=== PATIENT | female | born 1995 | race Hispanic/Latino ===

== ENCOUNTER 2019-03-03 12:48 | Observation (INO) | payer MEDICAID ==
[~2019-03-03] VITALS: Ht 165.1 cm; Wt 74.8 kg
[~2019-03-03 12:48] MED LIST: LEVO500T2 PO
[2019-03-03 14:05] LABS: BASOPHILS % (AUTO) 0.4 % (0.0-5.0); EOSINOPHILS % (AUTO) 0.6 % (0.0-8.0); HEMATOCRIT 32.9 % (36-48); LYMPHOCYTES % (AUTO) 20.2 % (21.0-51.0); MEAN CORPUSCULAR HEMOGLOBIN 29.3 pg (27.0-33.0); MEAN CORPUSCULAR HGB CONC 33.1 g/dL (32.0-36.0); MEAN CORPUSCULAR VOLUME 88.3 fL (79-99); NEUTROPHILS % (AUTO) 68.8 % (40.0-77.0); PLATELET COUNT (AUTO) 276 K/uL (130-400); RED BLOOD CELL COUNT(AUTO) 3.73 MIL/uL (4.00-5.50); RED CELL DISTRIBUTION WIDTH 14.8 % (11.0-15.5); WHITE BLOOD COUNT (AUTO) 11.5 K/uL (4.8-10.8)
[2019-03-03 14:12] LABS: APPEARANCE,URINE Clear (CLEAR); BILIRUBIN,URINE Negative (NEGATIVE); COLOR,URINE Yellow (YELLOW); GLUCOSE, URINE (UA) Negative (NEGATIVE); KETONES,URINE Negative (NEGATIVE); LEUKOCYTE ESTERASE ,URINE Small (NEGATIVE); NITRATE,URINE Negative (NEGATIVE); OCCULT BLOOD,URINE Negative (NEGATIVE); PROTEIN,URINE Negative (NEGATIVE); UROBILINOGEN,URINE 0.2 mg/dL (0.2-1.0)
[2019-03-03 14:18] LABS: CREATININE 0.6 mg/dL (0.5-1.5); POTASSIUM 3.6 mmol/L (3.5-5.1)
[2019-03-03 14:21] LABS: INR 0.88 (0.85-1.15); PARTIAL THROMBOPLASTIN TIME 24.8 SEC (26.3-35.5); PROTHROMBIN TIME 9.3 SEC (9.6-11.6)
[2019-03-03 14:24] LABS: ALBUMIN 2.4 g/dL (3.5-5.0); BILIRUBIN,TOTAL 0.2 mg/dL (0.2-1.0); TOTAL PROTEIN, SERUM 6.6 g/dL (6.0-8.3); URIC ACID 5.4 mg/dL (2.6-7.2)
[2019-03-03 14:36] LABS: RBC,URINE 0-1 /HPF (0-1)
[2019-03-03 14:37] LABS: BACTERIA,URINE Rare /HPF (None Seen); SQUAMOUS EPITHELIAL CELL,UR Rare /HPF (0-2)
[2019-03-03] MEDS ORDERED: ACETAMINOPHEN 325 MG TAB PO PRN (16:15)
[2019-03-03 17:17] VITALS: BP 123/77
[2019-03-03] MEDS ORDERED: PNV1TABL17 PO (17:39)
[2019-03-03] MEDS ORDERED: OXYMETAZOLINE HCL SPRAY 15 ML BOTTLE EN PRN (18:00)
[2019-03-03 19:18] VITALS: BP 126/81
[2019-03-03 23:10] VITALS: BP 123/85
--- NOTE | 2019-03-03 23:20 | NUR ---
NST: External monitor applied to monitor Heart Tone ended at 2353. FHT baseline 130, with acceleration, no deceleration noted. Noted x 1 contraction with 60 seconds duration. Patient denies any pain.
[2019-03-04 03:35] VITALS: BP 114/67
[2019-03-04 07:29] VITALS: BP 118/74
--- NOTE | 2019-03-04 08:50 | NUR ---
NST NST STARTED AT THIS TIME.
[2019-03-04 11:45] VITALS: BP 117/76
--- NOTE | 2019-03-04 13:23 | NUR ---
MD OSCAR ROUNDING ON PATIENT. PATIENT OKAY FOR DISCHARGE, KEEP SCHEDULED FOLLOW UP APPOINTMENT.
[2019-03-04 15:09] LABS: COLLECTION PERIOD,URINE 24 HR; TOTAL VOLUME 24HRS,URINE 3000 mL; TPROTEIN TIMED,URINE 7 mg/dL; TPROTEIN U,24HR CALC 210 mg/24HR (0-165)
[2019-03-04 15:13] LABS: CREATININE,SERUM FOR CRCL 0.6 mg/dL (0.6-1.3)
[2019-03-04 16:44] VITALS: BP 116/74
--- NOTE | 2019-03-04 17:20 | NUR ---
DISCHARGE PATIENT LEFT UNIT VIA WHEELCHAIR WITH BELONGINGS IN HAND. PERSONAL VEHICLE USED FOR TRANSPORTATION. NO COMPLAINTS OR CONCERNS ADDRESSED FROM PATIENT ON DISCHARGE.
== END 2019-03-04 17:20 | disposition home or self-care (01) ==
LOC: LDH 12:48 → WSH 12:49
DX: O00.01 Abdominal pregnancy with intrauterine pregnancy (principal); O26.893 Other specified pregnancy related conditions, third trimester; R51 Headache; Z3A.35 35 weeks gestation of pregnancy; Z79.01 Long term (current) use of anticoagulants
CPT/HCPCS: 36415; 59025 ×2; 80053; 81001; 82575; 84156; 84550; 85025; 85384; 85610; 85730; G0378 ×28

== ENCOUNTER 2022-08-31 13:33 | Emergency (ER) | payer BC, MEDICAID ==
[~2022-08-31] VITALS: Ht 165.1 cm; Wt 82.6 kg
[~2022-08-31 13:33] MED LIST changes: -LEVO500T2 PO; +PREN-154 PO
[2022-08-31 14:47] LABS: APPEARANCE,URINE CLEAR (CLEAR); BILIRUBIN,URINE NEGATIVE (NEGATIVE); COLOR,URINE LIGHT-YELLOW (YELLOW); GLUCOSE, URINE (UA) NEGATIVE (NEGATIVE); KETONES,URINE NEGATIVE (NEGATIVE); LEUKOCYTE ESTERASE ,URINE NEGATIVE Leu/uL (NEGATIVE); NITRATE,URINE NEGATIVE (NEGATIVE); OCCULT BLOOD,URINE NEGATIVE (NEGATIVE); PROTEIN,URINE NEGATIVE (NEGATIVE); UROBILINOGEN,URINE 0.2 mg/dL (0.2-1.0)
[2022-08-31 14:51] LABS: BASOPHILS % (AUTO) 0.4 % (0.0-5.0); EOSINOPHILS % (AUTO) 0.3 % (0.0-8.0); HEMATOCRIT 34.3 % (36-48); LYMPHOCYTES % (AUTO) 14.1 % (21.0-51.0); MEAN CORPUSCULAR HEMOGLOBIN 28.4 pg (27.0-33.0); MEAN CORPUSCULAR HGB CONC 34.4 g/dL (32.0-36.0); MEAN CORPUSCULAR VOLUME 82.7 fL (79-99); MONOCYTES % (AUTO) 4.9 % (3.0-13.0); NEUTROPHILS % (AUTO) 79.9 % (40.0-77.0); PLATELET COUNT (AUTO) 309 K/uL (130-400); RED BLOOD CELL COUNT(AUTO) 4.15 MIL/uL (4.00-5.50); WHITE BLOOD COUNT (AUTO) 13.2 K/uL (4.8-10.8)
[2022-08-31 15:00] LABS: CREATININE 0.6 mg/dL (0.5-1.5); POTASSIUM 3.2 mmol/L (3.5-5.1)
[2022-08-31 15:03] LABS: ALBUMIN 3.5 g/dL (3.5-5.0)
[2022-08-31 15:41] LABS: TOTAL PROTEIN, SERUM 7.9 g/dL (6.0-8.3)
[2022-08-31 16:07] VITALS: BP 101/63
== END 2022-08-31 18:29 | disposition home or self-care (01) ==
LOC: EDH 13:33
DX: O26.891 Other specified pregnancy related conditions, first trimester (principal); R10.9 Unspecified abdominal pain; Z3A.11 11 weeks gestation of pregnancy
CPT/HCPCS: 36415; 76801; 80053; 81003; 84702; 85025

== ENCOUNTER → 2024-08-07 | Outpatient (CLI) | payer BC ==
--- NOTE | 2024-08-07 13:46 | HMCIMG ---
US BREAST COMPLETE UNILATERAL REASON: unspecifed lump on breast. COMPARISON: None TECHNIQUE: Right breast ultrasound study was performed. FINDINGS: Dense fibroglandular tissue is seen of right breast. At the region of interest at 5:00 of right breast, no evidence of cystic or hypoechoic mass is seen. Right axillary lymph nodes are seen measuring 13 x 8 x 15 mm at 14 x 8 x 16 mm each. No evidence of cystic or hypoechoic mass is seen IMPRESSION: No evidence of cystic or hypoechoic mass is seen. CATEGORY 2: BENIGN FINDINGS Recommend monthly self breast exam as well as annual clinical examination.
== END | disposition home or self-care (01) ==
LOC: RAH 10:56
PROVIDERS: ATTEND Internal Medicine
DX: N63.14 Unspecified lump in the right breast, lower inner quadrant (principal)
CPT/HCPCS: 76641